=== PATIENT | female | born 1945 | race Two or more races ===

== ENCOUNTER → 2018-11-22 | Day surgery (SDC) | payer OTHER ==
[~2018-11-22] MED LIST: MACROBID 100 M100 MG PO; ULTRACET PO; ZINC LOZENGES1 EACH PO; ZOCOR PO
== END | disposition home or self-care (01) ==
LOC: ADM 11-16 09:30 → CIR.AMB 04:20
DX: N81.11 Cystocele, midline (principal); N81.5 Vaginal enterocele

== ENCOUNTER 2019-09-21 06:20 | Day surgery (SDC) | payer OTHER ==
[~2019-09-21 06:20] MED LIST changes: +COZAAR50 MG PO
== END 2019-09-21 14:45 | disposition home or self-care (01) ==
LOC: CIR.AMB 06:20 → ADM 09:30 → CIR.AMB 14:45
PROVIDERS: ATTEND Obstetrics & Gynecology
DX: N84.0 Polyp of corpus uteri (principal)

== ENCOUNTER → 2024-02-25 08:01 | Outpatient (CLI) | payer OTHER ==
[2024-02-25 09:11] LABS: CREATININE SERUM 0.79 mg/dL (0.55-1.02)
== END | disposition home or self-care (01) ==
LOC: LAB 08:01
PROVIDERS: ATTEND Radiology Diagnostic Radiology
DX: R10.30 Lower abdominal pain, unspecified (principal)

== ENCOUNTER 2024-02-28 07:53 | Outpatient (CLI) | payer OTHER | END 2024-02-28 08:03 | disposition home or self-care (01) | LOC: TOM 07:53 | PROVIDERS: ATTEND Colon & Rectal Surgery | DX: K57.32 Diverticulitis of large intestine without perforation or abscess without bleeding (principal) | CPT/HCPCS: 74177; Q9965 ==